=== PATIENT | female | born 1980 | race Caucasian/White ===

== ENCOUNTER 2016-08-18 16:51 | Emergency (ER) | payer BC, MEDICAID ==
--- NOTE | 2016-08-18 18:51 | UC ---
UC General HPI - HPI Summary HPI Summary: FOUR DAYS OF GREEN NASAL CONGESTION/DISCHARGE, ONE DAY OF DIARRHEA. NO FEVER. - History of Current Complaint Chief Complaint: UC Stated Complaint: DIARRHEA Time Seen by Provider: 08/18/16 18:33 Hx Obtained From: Patient, Family/Customer Loyalty Representative Hx From Patient Unobtainable Due To: Other - AUTISM CP Onset/Duration: Lasting Days, Still Present Onset Severity: Mild Current Severity: Mild Associated Signs & Symptoms: Positive: Diarrhea. Negative: Abdominal Pain, Confusion, Cough, Chest Pain, Decreased Responsiveness, Dizziness, Dysuria, Decreased Oral Intake, Edema, Fever, Headache, Nausea, Palpitations, Recent Medication Changes, Syncope, SOB, Vomiting, Wheezing - Allergy/Home Medications Allergies/Adverse Reactions: Allergies Allergy/AdvReac Type Severity Reaction Status Date / Time Influenza Vaccines Allergy Unknown Unknown Verified 08/18/16 17:46 Reaction Details Amoxicillin Allergy Hives Verified 08/18/16 17:46 Clavulanic Acid Allergy Unknown Verified 08/18/16 17:46 Reaction Details Potassium Allergy Unknown Verified 08/18/16 17:46 Reaction Details PMH/Surg Hx/FS Hx/Imm Hx Previously Healthy: Yes Cardiovascular History Of: Denies: Cardiac Disorders Respiratory History Of: Reports: Asthma Neurological History Of: Reports: Seizures - Surgical History Surgical History: None - Family History Known Family History: Positive: None, Unknown - FAM HX NOT NOTED WITH LEAD POURER - Social History Occupation: Disabled Lives: Assisted Living Alcohol Use: None Substance Use Type: None Smoking Status (MU): Never Smoked Tobacco Review of Systems Constitutional: Negative Skin: Negative Eyes: Negative ENT: Nasal Discharge Respiratory: Negative Cardiovascular: Negative Gastrointestinal: Diarrhea Genitourinary: Negative Motor: Negative Neurovascular: Negative Musculoskeletal: Negative Neurological: Negative Psychological: Negative All Other Systems Reviewed And Are Negative: Yes Physical Exam Triage Information Reviewed: Yes Completion Of Physical Exam Limited Due To: Other - SEVERE AUTISM, CP Appearance: Well-Appearing, No Pain Distress, Well-Nourished Vital Signs: Initial Vital Signs Temp 97.5 F 08/18/16 17:41 Vital Signs Reviewed: Yes Eye Exam: Normal ENT Exam: Normal ENT: Positive: Normal ENT inspection, Hearing grossly normal, Pharynx normal, TMs normal. Negative: TM bulging, TM dull, TM red Dental Exam: Normal Neck exam: Normal Neck: Positive: Supple, Nontender, No Lymphadenopathy Respiratory Exam: Normal Respiratory: Positive: Chest non-tender, Lungs clear, Normal breath sounds, No respiratory distress, No accessory muscle use Cardiovascular Exam: Normal Cardiovascular: Positive: RRR, No Murmur, Pulses Normal, Brisk Capillary Refill Abdominal Exam: Normal Abdomen Description: Positive: Nontender, No Organomegaly Bowel Sounds: Positive: Present. Negative: Hypoactive, Hyperactive Musculoskeletal Exam: Normal Musculoskeletal: Positive: Strength Intact, ROM Intact Neurological Exam: Normal Psychological Exam: Normal Psychological: Positive: Normal Response To Family Skin Exam: Normal Course/Dx - Differential Dx - Multi-Symptom Differential Diagnoses: Metabolic Abnormality Provider Diagnoses: UPPER RESPIRATORY INFECTION. ACUTE DIARRHEA. VIRAL SYNDROME Discharge - Discharge Plan Condition: Stable Disposition: HOME Patient Education Materials: Upper Respiratory Infection (ED), Acute Diarrhea ( ED), Viral Syndrome (ED) Referrals: Roxi Quinonez MD [Primary Care Provider] -
== END 2016-08-18 18:50 | disposition home or self-care (01) ==
LOC: UCEAST 16:51
DX: J06.9 Acute upper respiratory infection, unspecified (principal); R19.7 Diarrhea, unspecified; B34.9 Viral infection, unspecified; Z88.0 Allergy status to penicillin; Z88.7 Allergy status to serum and vaccine; Z88.8 Allergy status to other drugs, medicaments and biological substances
CPT/HCPCS: 99212; G0463

== ENCOUNTER 2017-02-21 13:56 | Emergency (ER) | payer BC, MEDICAID ==
--- NOTE | 2017-02-21 14:11 | UC ---
General HPI - HPI Summary HPI Summary: [place] from a [place], she was witnessed falling to her knees then face planting. she is active and caregiver states that she is acting normal. multiple small abraisions on her face, and one on the lower right leg. - History of Current Complaint Chief Complaint: UCGeneralIllness Stated Complaint: FELL Time Seen by Provider: 02/21/17 13:57 Hx Obtained From: Patient Onset/Duration: Sudden Onset, Lasting Hours Timing: Constant Onset Severity: Mild Current Severity: Mild - Allergy/Home Medications Allergies/Adverse Reactions: Allergies Allergy/AdvReac Type Severity Reaction Status Date / Time Influenza Vaccines Allergy Unknown Unknown Verified 02/21/17 14:04 Reaction Details Amoxicillin Allergy Hives Verified 02/21/17 14:04 Clavulanic Acid Allergy Unknown Verified 02/21/17 14:04 Reaction Details Potassium Allergy Unknown Verified 02/21/17 14:04 Reaction Details PMH/Surg Hx/FS Hx/Imm Hx Previously Healthy: Yes - Surgical History Surgical History: None - Family History Known Family History: Positive: None, Unknown - FAM HX NOT NOTED WITH GARBAGE TRUCK HELPER - Social History Alcohol Use: None Substance Use Type: None Smoking Status (MU): Never Smoked Tobacco Review of Systems Constitutional: Negative Skin: Other - multiple facial abrasions Eyes: Negative ENT: Negative Respiratory: Negative Cardiovascular: Negative Gastrointestinal: Negative Genitourinary: Negative Motor: Negative Neurovascular: Negative Musculoskeletal: Negative Neurological: Negative Psychological: Other - at baseline, non verbal All Other Systems Reviewed And Are Negative: Yes Physical Exam Triage Information Reviewed: Yes Appearance: Well-Appearing, No Pain Distress, Well-Nourished Vital Signs Reviewed: Yes Eye Exam: Normal ENT Exam: Normal Dental Exam: Normal Neck exam: Normal Respiratory Exam: Normal Cardiovascular Exam: Normal Cardiovascular: Positive: RRR, No Murmur, Pulses Normal - apical regular, 78 Abdominal Exam: Normal Abdomen Description: Positive: Nontender, No Organomegaly, Soft Bowel Sounds: Positive: Present Musculoskeletal Exam: Normal Musculoskeletal: Positive: Strength Intact, ROM Intact, No Edema Neurological Exam: Normal Neurological: Positive: Alert, Muscle Tone Normal Psychological Exam: Normal Skin: Positive: Other - abraision on forehead, nose and upper lip. small one noted on right lower leg Course/Dx - Course Course Of Treatment: hx obtained, exam performed ,meds reviewed, no scripts given, patient has [facility] standing order for bacitracin at the prison - Differential Dx - Multi-Symptom Provider Diagnoses: facial abrasions. fall from trip Discharge - Discharge Plan Condition: Stable Disposition: HOME Patient Education Materials: Abrasion (ED) Additional Instructions: 1. Follow the instructions on included paperwork.
== END 2017-02-21 14:27 | disposition home or self-care (01) ==
LOC: UCCORT 13:56
DX: S00.81XA Abrasion of other part of head, initial encounter (principal); S80.811A Abrasion, right lower leg, initial encounter; W01.0XXA Fall on same level from slipping, tripping and stumbling without subsequent striking against object, initial encounter; Y93.9 Activity, unspecified; Y92.199 Unspecified place in other specified residential institution as the place of occurrence of the external cause; Z88.1 Allergy status to other antibiotic agents; Z88.7 Allergy status to serum and vaccine
CPT/HCPCS: 99212; G0463

== ENCOUNTER 2018-10-13 11:31 | Emergency (ER) | payer BC, MEDICAID ==
--- NOTE | 2018-10-13 12:38 | UC ---
Skin Complaint HPI - HPI Summary HPI Summary: 38 year old female with development delay presents with caregiver reporting onset of dry scaly rash to the back of both of her lower legs 4 days ago. Caregiver does not report any itching. States they have been applying Kenalog cream with no improvement. Denies fever, chills, swelling of the lips, tongue, throat, difficulty breathing, wheezing, changes in soaps, detergents, lotions, diet, medications, or known contact with environmental irritants. - History of Current Complaint Chief Complaint: UCSkin Time Seen by Provider: 10/13/18 12:23 Stated Complaint: RASH Hx Obtained From: Patient Hx Last Menstrual Period: 3 wks ago Pain Intensity: 0 - Allergy/Home Medications Allergies/Adverse Reactions: Allergies Allergy/AdvReac Type Severity Reaction Status Date / Time amoxicillin [From Augmentin] Allergy Unknown Verified 10/13/18 12:36 Reaction Details clavulanic acid Allergy Unknown Verified 10/13/18 12:36 [From Augmentin] Reaction Details Influenza Virus Vaccines Allergy Unknown Verified 10/13/18 12:36 Reaction Details potassium Allergy Unknown Verified 10/13/18 12:36 Reaction Details Home Medications: Home Medications Loratadine 10 mg PO DAILY 10/13/18 [History Confirmed 10/13/18] Triamcinolone 0.1% CREAM (NF) [Kenalog 0.1% Cream (NF)] 1 each TOPICAL BID 10/13 [History Confirmed 10/13/18] PMH/Surg Hx/FS Hx/Imm Hx Previously Healthy: Yes - Surgical History Surgical History: None - Family History Known Family History: Positive: Unknown - FAM HX NOT NOTED WITH BISCUIT PACKER - Social History Occupation: Disabled Lives: [place] Alcohol Use: None Substance Use Type: None Smoking Status (MU): Never Smoked Tobacco Review of Systems All Other Systems Reviewed And Are Negative: Yes Constitutional: Negative: Fever, Chills Skin: Positive: Rash ENT: Positive: Negative Respiratory: Negative: Shortness Of Breath Cardiovascular: Positive: Negative Gastrointestinal: Positive: Negative Genitourinary: Positive: Negative Musculoskeletal: Positive: Negative Neurological: Positive: Negative Is Patient Immunocompromised?: No Physical Exam - Summary Physical Exam Summary: GENERAL APPEARANCE: Well developed, well nourished, alert and cooperative, and appears to be in no acute distress. EYES: Conjunctiva clear. No drainage. Vision is grossly intact. EARS: External auditory canals and tympanic membranes clear, hearing grossly intact. NOSE: No nasal discharge. THROAT: Pharynx normal No tonsilar inflammation, swelling, exudate, or lesions. Uvula midline. Oral cavity normal. Teeth and gingiva in good general condition. NECK: Neck supple, non-tender without lymphadenopathy. CARDIAC: Normal S1 and S2. No S3, S4 or murmurs. Rhythm is regular. There is no peripheral edema, cyanosis or pallor. Extremities are warm and well perfused. Capillary refill is less than 2 seconds. Peripheral pulses intact. LUNGS: Clear to auscultation without rales, rhonchi, wheezing or diminished breath sounds. ABDOMEN: Positive bowel sounds. Soft, nondistended, nontender. No guarding or rebound. No masses or hepatosplenomegally. MUSKULOSKELETAL: ROM intact to all extremities. No joint erythema or tenderness. Normal muscular development. Normal gait. SKIN: Dry, scaly erythematous rash with dry flaky skin to the posterior lower extremities with the left worse than the right. Triage Information Reviewed: Yes Vital Signs: Initial Vital Signs Temp 97.4 F 10/13/18 12:18 Pulse 80 10/13/18 12:18 Resp 18 10/13/18 12:18 Pulse Ox 99 10/13/18 12:18 Vital Signs Reviewed: Yes Course/Dx - Course Course Of Treatment: 38 year old female with development delay presents with caregiver reporting onset of dry scaly rash to the back of both of her lower legs 4 days ago. Caregiver does not report any itching. States they have been applying Kenalog cream with no improvement. Denies fever, chills, swelling of the lips, tongue, throat, difficulty breathing, wheezing, changes in soaps, detergents, lotions, diet, medications, or known contact with environmental irritants. Afebrile. VSS. Exam reveals an adult female in no acute distress with dry, scaly erythematous rash with dry flaky skin to the posterior lower extremities with the left worse than the right. Exam otherwise unremarkable. Will try using a more potent topical steroid and have caregivers use a moisturizing lotion to see if this improves symptoms. A prescription for clobetasol ointment was provided. She is to follow up with PCP in 7 days if no improvement. Anticipatory guidance and warning symptoms reviewed with caregiver. Verbalizes understanding and agrees with POC. - Differential Diagnoses - Skin Complaint Differential Diagnoses: Allergic Reaction, Cellulitis, Contact Dermatitis, Eczema, Local Allergic Reaction, Tinea - Diagnoses Provider Diagnosis: Dermatitis Discharge - Sign-Out/Discharge Documenting (check all that apply): Patient Departure All imaging exams completed and their final reports reviewed: No Studies - Discharge Plan Condition: Stable Disposition: HOME Prescriptions: Clobetasol 0.05% OINT* 1 applic TOPICAL BID #1 tube Patient Education Materials: Dermatitis (ED) Referrals: Roxi Quinonez MD [Primary Care Provider] - 7 Days (If no improvement.) Additional Instructions: The rash appears to be a dermatitis of uncertain cause. Stop using the Kenalog cream and start clobetasol ointment. Apply a thin layer to the affected area(s) twice a day. Do not use for more than 2 weeks. After applying the clobetasol ointment, use a hydrating lotion such as Lubriderm or Aquafor. Follow up with the primary care provider in 5-7 days if no improvement in symptoms. - Billing Disposition and Condition Condition: STABLE Disposition: Home - Attestation Statements Provider Attestation: Per institutional requirements, I have reviewed the chart, however, I was not consulted specifically or made aware of this patient by the midlevel provider. I did not personally evaluate, interact with , or disposition this patient.
== END 2018-10-13 12:43 | disposition home or self-care (01) ==
LOC: UCCORT 11:31
DX: L30.9 Dermatitis, unspecified (principal); Z88.0 Allergy status to penicillin; Z88.7 Allergy status to serum and vaccine; Z91.09 Other allergy status, other than to drugs and biological substances
CPT/HCPCS: 99212; G0463

== ENCOUNTER 2019-07-22 17:53 | Emergency (ER) | payer BC, MEDICAID ==
--- NOTE | 2019-07-22 19:21 | ED ---
Complex/Multi-Sys Presentation - HPI Summary HPI Summary: Patient is a 39 y/o F w/ cerebral palsy presenting to [facility] for evaluation of generalized pain. Patient is a level 5 caveat secondary to nonverbal status. Mother provides history. Mother states that around a month ago, it was noted at her program that the patient tended to lean towards her left side. PCP had evaluated the patient, bloodwork was done and was unremarkable. Mother states that the patient has been dealing with sinus issues and was placed on Doxycycline over . This past weekend, she has been crying and grimacing in pain. Mother claims that the patient has a high pain tolerance; crying is characterized as an abnormal behavior. They have not been able to definitely localize the patient's pain, but it is believed that the patient's pain is at her abdomen. Decreased appetite and PO fluid intake is noted, mother reports that the patient has a very large appetite at baseline. No vomiting or diarrhea noted. Tylenol has been administered with some relief in Sx. Mother states that the patient has been fluctuating between crying/grimacing in pain and being at her baseline. She also notes that the patient has been pacing more frequently than normal and with increased fatigue. Mother is concerned for possible kidney stone due to FMHx of such. PSHx of myringotomy and wisdom teeth removal noted. Home medications and allergies are reviewed. - History Of Current Complaint Chief Complaint: EDAbdPain Time Seen by Provider: 07/22/19 18:59 Hx Obtained From: Family/Data Warehouse Analyst Hx From Patient Unobtainable Due To: Other - atient is a level 5 caveat secondary to nonverbal status, cerebral palsy Onset/Duration: Still Present Timing: Constant Location: Pain At: - abdomen Alleviating Factor(s): Tylenol Associated Signs And Symptoms: Positive: Abdominal Pain, Other - positive - decreased PO intake, fatigue. Negative: Vomiting, Diarrhea - Allergies/Home Medications Allergies/Adverse Reactions: Allergies Allergy/AdvReac Type Severity Reaction Status Date / Time amoxicillin [From Augmentin] Allergy Unknown Verified 07/22/19 18:04 Reaction Details clavulanic acid Allergy Unknown Verified 07/22/19 18:04 [From Augmentin] Reaction Details Influenza Virus Vaccines Allergy Unknown Verified 07/22/19 18:04 Reaction Details potassium Allergy Unknown Verified 07/22/19 18:04 Reaction Details Home Medications: Home Medications Al Hydrox/Mg Hydrox/Simet LIQ* [Maalox Plus*] 30 ml PO Q4H PRN 07/23/19 [ History Confirmed 07/23/19] Bacitracin Zinc 1 each TP Q12HR PRN 07/23/19 [History Confirmed 07/23/19] Carbamide Peroxide 6.5% OTIC* [DEBROX 6.5% Otic*] 4 drop .SEE ORDER BID [History Confirmed 07/23/19] Emollient Combination No.40 [Cetaphil] 226 gm TP BID 07/23/19 [History Confirmed 07/23/19] Eucalyptus Oil/Menthol/Camphor [Vicks Vaporub Ointment] 50 gm TP BID PRN [History Confirmed 07/23/19] Glycerin/Min Oil/Wh.petrolatum [Lubriderm Sensitive Skin Lot] 473 ml TP QPM [History Confirmed 07/23/19] Petrolatum,White [Aquaphor] 396 gm TP DAILY PRN 07/23/19 [History Confirmed ] Triazolam 0.25 mg PO ONCE PRN 07/23/19 [History Confirmed 07/23/19] diphenhydrAMINE HCL [Diphenhydramine HCl] 25 mg PO QPM 07/23/19 [History Confirmed 07/23/19] PMH/Surg Hx/FS Hx/Imm Hx Respiratory History: Reports: Hx Asthma Neurological History: Reports: Hx Seizures, Other Neuro Impairments/Disorders - CEREBRAL PALSY Psychiatric History: Reports: Hx Autism Infectious Disease History: No Infectious Disease History: Denies: Hx Clostridium Difficile, Hx Hepatitis, Hx Human Immunodeficiency Virus (HIV), Hx Shingles, Hx Tuberculosis, Traveled Outside the [place] in Last 30 Days - Family History Known Family History: Positive: Renal Disease - kidney stones - Social History Alcohol Use: None Hx Substance Use: No Substance Use Type: Reports: None Hx Tobacco Use: No Smoking Status (MU): Never Smoked Tobacco Review of Systems - ROS Summary Review of Systems Summary: Patient is a level 5 caveat secondary to nonverbal status, cerebral palsy Positive: Fatigue. Negative: Fever - on vitals, temp is 97.8 F Gastrointestinal: Other - positive - decreased PO intake Positive: Abdominal Pain. Negative: Vomiting, Diarrhea Psychological: Other - positive - crying All Other Systems Reviewed And Are Negative: No - Comments Additional Review of Systems Comments: Patient is a level 5 caveat secondary to nonverbal status, cerebral palsy Physical Exam - Summary Physical Exam Summary: Appearance: Well-appearing, Well-nourished, no apparent distress Skin: Warm, dry, no obvious rash Eyes: sclera anicteric, no conjunctival pallor ENT: patient is unable to cooperate with ENT exam Neck: Supple, nontender Respiratory: Clear to auscultation, no signs of respiratory distress Cardiovascular: Normal S1, S2. No murmurs. Normal distal pulses in tibial and radial bilaterally. Abdomen: patient is unable to cooperate with abdominal exam Musculoskeletal: Normal, Strength/ROM Intact Neurological: Nonverbal, level 5 caveat Psychiatric: Nonverbal, level 5 caveat Triage Information Reviewed: Yes Vital Signs On Initial Exam: Initial Vitals Temp Pulse Resp BP Pulse Ox 97.8 F 93 18 116/85 98 07/22/19 17:59 07/22/19 17:59 07/22/19 17:59 07/22/19 17:59 07/22/19 17:59 Vital Signs Reviewed: Yes Completion Of Physical Exam Limited Due To: Level 5, Other - non-verbal, cerebral palsy Procedures - Sedation Patient Received Moderate/Deep Sedation with Procedure: No Diagnostics - Vital Signs Vital Signs Temp Pulse Resp BP Pulse Ox 07/22/19 17:59 97.8 F 93 18 116/85 98 - Laboratory Result Diagrams: 07/22/19 21:25 07/22/19 21:25 Lab Statement: Any lab studies that have been ordered have been reviewed, and results considered in the medical decision making process. - Radiology CXR Radiology Interpretation Completed By: ED Physician Summary of Radiographic Findings: CXR showed no acute process pending official report. - CT CT ABD/PEL CT Interpretation Completed By: Radiologist Summary of CT Findings: IMPRESSION: 1. Involuting possibly hemorrhagic left ovarian corpus luteal cyst. 2. Moderate fecal load throughout the colon. Constipation is considered. THIS REPORT WAS REVIEWED BY ED PHYSICIAN. Re-Evaluation - Re-Evaluation First Eval Re-Evaluation Time: 01:10 Comment: Results of workup were discussed with mother. Patient to be discharged to home. Treating patient with Tylenol and Motrin was advised. If Sx do not improve, patient is recommended to follow up with GI. Complex Multi-Symp Course/Dx Course Of Treatment: Patient is a 39 y/o F w/ cerebral palsy presenting to [facility] for evaluation of generalized pain. Patient is a level 5 caveat secondary to nonverbal status. Mother provides history. Mother states that around a month ago, it was noted at her program that the patient tended to lean towards her left side. PCP had evaluated the patient, bloodwork was done and was unremarkable. Mother states that the patient has been dealing with sinus issues and was placed on Doxycycline over . This past weekend, she has been crying and grimacing in pain. Mother claims that the patient has a high pain tolerance; crying is characterized as an abnormal behavior. They have not been able to definitely localize the patient's pain, but it is believed that the patient's pain is at her abdomen. Decreased appetite and PO fluid intake is noted, mother reports that the patient has a very large appetite at baseline. No vomiting or diarrhea noted. Tylenol has been administered with some relief in Sx. Mother states that the patient has been fluctuating between crying/ grimacing in pain and being at her baseline. She also notes that the patient has been pacing more frequently than normal and with increased fatigue. Mother is concerned for possible kidney stone due to FMHx of such. PSHx of myringotomy and wisdom teeth removal noted. Unable to assess abdomen and ENT due to uncooperativity of patient. She is in no apparent distress. CXR showed no acute process. Bloodwork was obtained and within normal limits with exception of Hgb 11.7, MCH 32, INR 1.14, carbon dioxide 19, BUN/creatinine ratio 24.2, glucose 105. UA showed 1+ protein, trace ketones, trace leukocyte esterase, trace WBC, trace RBC, squamous epith cells present, ascorbic acid present. During ED course, patient received Ativan 1 mg x2 and Haldol 5 mg IM and [address] ABD/PEL IMPRESSION: 1. Involuting possibly hemorrhagic left ovarian corpus luteal cyst. 2. Moderate fecal load throughout the colon. Constipation is considered. Results of workup were discussed with mother. Patient to be discharged to home. Treating patient with Tylenol and Motrin was advised. If Sx do not improve, patient is recommended to follow up with GI. - Diagnoses Provider Diagnoses: Left ovarian cyst, Constipation Discharge ED - Sign-Out/Discharge Documenting (check all that apply): Patient Departure - discharge - Discharge Plan Condition: Stable Disposition: HOME Patient Education Materials: Ovarian Cyst (ED), Constipation (ED) Referrals: Marques Colon DO [Doctor of Osteopathy] - Roxi Quinonez MD [Primary Care Provider] - Additional Instructions: We did not find anything worrisome on Dilma's tests tonight. The radiologist does think she has a left sided ovarian cyst that could be causing her some discomfort, but that should heal on its own. For now I would recommend a regular dose of tylenol or motrin if she seems uncomfortable. If she does not seem to improve over the next few days to a week, she should see a tractor drill operator. - Billing Disposition and Condition Condition: STABLE Disposition: Home - Attestation Statements Document Initiated by Ratna: Yes Documenting Scribe: MARKUS NAVARRETE Provider For Whom Ratna is Documenting (Include Credential): ISACC MELGAR MD Scribe Attestation: IMARKUS, scribed for ISACC MELGAR MD on 07/27/19 at 0632. Scribe Documentation Reviewed: Yes Provider Attestation: The documentation as recorded by the MARKUS alva accurately reflects the service I personally performed and the decisions made by me, ISACC MELGAR MD Status of Scribe Document: Viewed
[2019-07-22] MEDS ORDERED: Haloperidol INJ IV/IM* 5 MG/ML AMP IM ONE (19:34)
[2019-07-22] MEDS ORDERED: LORazepam INJ* 2 MG/ML 1 ML VIAL IM ONE (19:34)
[2019-07-22] MEDS ORDERED: Lorazepam PYXIS KEY ONE ×2 (20:00→22:16)
[2019-07-22 21:32] LABS: Urine Appearance Cloudy; Urine Bilirubin Negative (Negative); Urine Blood Negative (Negative); Urine Color Yellow; Urine Glucose Negative (Negative); Urine Ketones Trace (Negative); Urine Nitrite Negative (Negative); Urine Protein 1+(30 mg/dL) (Negative); Urine Specific Gravity 1.031 (1.010-1.030); Urine Urobilinogen Negative (Negative)
[2019-07-22 21:33] LABS: ABS Basophils 0.1 10^3/ul (0-0.2); ABS Eosinophils 0.2 10^3/ul (0-0.6); ABS Lymphocytes 3.4 10^3/ul (1.0-4.8); ABS Monocytes 0.6 10^3/ul (0-0.8); Eosinophil % 3.7 %; Hematocrit 35 % (35-47); Hemoglobin 11.7 g/dL (12.0-16.0); Lymphocyte % 53.8 %; Mean Corpuscular HGB Conc 34 g/dL (31-36); Mean Corpuscular Hemoglobin 32 pg (27-31); Mean Corpuscular Volume 94 fL (80-97); Mean Platelet Volume 9.3 fL (7.4-10.4); Nucleated Red Blood Cells % 0.2; Platelet Count 195 10^3/uL (150-450); Red Cell Distribution Width 14 % (10-15); White Blood Count 6.3 10^3/uL (3.5-10.8)
[2019-07-22 21:39] LABS: Urine Bacteria Absent (Absent); Urine Red Blood Cell Trace(0-2/hpf) (Absent); Urine Squamous Epithelial Cell Present (Absent); Urine White Blood Cell Trace(0-5/hpf) (Absent)
[2019-07-22 21:44] LABS: Albumin 4.4 g/dL (3.2-5.2); Calcium 9.5 mg/dL (8.6-10.3); Potassium 3.9 mmol/L (3.5-5.0); Total Bilirubin 0.3 mg/dL (0.2-1.0)
[2019-07-22 21:50] LABS: Albumin/Globulin Ratio 1.4 (1-3); BUN/Creatinine Ratio 24.2 (8-20); EGFR African American 121.9 (>60); EGFR Non-African American 100.8 (>60); Globulin 3.1 g/dL (2-4); Total Protein 7.5 g/dL (6.4-8.9)
[2019-07-22] MEDS ORDERED: Iohexol 300* (CONTRAST) 10 ML SDV IV ONE (21:55)
[2019-07-22 21:56] LABS: Activated Partial Thrombo Time 35.7 seconds (26.0-38.0); INR 1.14 (0.82-1.09)
[2019-07-22] MEDS ORDERED: LORazepam INJ* 2 MG/ML 1 ML VIAL IV ONE (22:08)
[2019-07-22] MEDS ORDERED: Haloperidol INJ IV/IM* 5 MG/ML AMP IV ONE (22:08)
[2019-07-23 07:03] VITALS: BP 0/0
== END 2019-07-23 07:01 | disposition home or self-care (01) ==
LOC: ED 17:53
DX: N83.202 Unspecified ovarian cyst, left side (principal); K59.00 Constipation, unspecified; J45.909 Unspecified asthma, uncomplicated; G80.9 Cerebral palsy, unspecified; F84.0 Autistic disorder; Z88.1 Allergy status to other antibiotic agents; Z88.7 Allergy status to serum and vaccine; Z88.8 Allergy status to other drugs, medicaments and biological substances
CPT/HCPCS: 36415; 71045; 74177; 80053; 81003; 81015; 83605; 85025; 85610; 85730; 87077; 87086; 96372; 96374; 96375; 99284; J1630; J2060; Q9967

== ENCOUNTER 2019-07-28 12:04 | Inpatient (IN) | payer BC, MEDICAID ==
--- OUTSIDE RECORDS SUMMARY | 2019-07-28 12:12 | XMS REPORT | Summary of Care ---
:1980 Author Organization [facility] Address [address] [place] [address] Care Team Providers Name Role Phone Roxi Quinonez Primary Care Provider Reason for Visit Reason Comments Congestion Presents with parents, lives in jail; nurse advised of nasal congestion x2 weeks. Denies fever. OTC mucinex and benadryl x1 week, not really helping. Encounter Details Date Type Department Care Team Description 07[facility]13/2019 [facility] Acute non-recurrent sinusitis, unspecified location (Primary Dx); Practice Rylie Pantoja MD Cough; [address] Autism; [place] [address] Intellectual disability; [phone] Cerebral palsy, unspecified type ([facility]) Allergies Active Allergy Reactions Severity Noted Date Comments Amoxicillin 08/28/2007 Augmentin 08/28/2007 Influenza Vaccines Unknown Reaction 05/21/2015 Potassium Other 08/28/2007 documented as of this encounter (statuses as of 07/13/2019) Medications Medication Sig Dispensed Refills Start End Status Date Date acetaminophen Take 2 Tabs by 120 Tab 0 11/30/19 Active (TYLENOL) 325 MG mouth EVERY 13 Oral Tab FOUR HOURS NEEDED for Pain (for pain or fever>101 do not give with naproxen). aluminum & Take 30 mL by 840 mL 0 11/30/19 Active magnesium mouth EVERY 13 hydroxide-simethico FOUR HOURS ne (MYLANTA I) NEEDED (for 200-200-20 MG/5ML minor upset Oral Suspension stomach ). Camphor-Eucalyptus- by Apply 0 11/30/19 Active Menthol (VICKS externally 13 VAPORUB) route 4.7-1.2-2.6 % Apply NEEDED (for externally Ointment chest congestion or cold symptoms). bacitracin 500 Apply to small 0 11/30/19 Active UNIT/GM Apply cuts and 13 externally Ointment scrapes as needed naproxen sodium TAKE ONE 60 Tab 4 04/03/20 Active (ANAPROX DS) 550 MG TABLET BY 15 Oral Tab MOUTH 2 TIMES A DAY NEEDED (FOR MENSTRAL CRAMP)DO NOT GIVE WITH TYLENOL(DAY CARD FOR 1 WEEK) Emollient (CETAPHIL APPLY TWICE 453 g 5 06/22/20 Active MOISTURIZING) Apply DAILY TO FACE 15 externally Cream (MOISTURIZER) APPLY EXTERNALLY diphenhydrAMINE Take 25 mg by 30 Tab 5 07/22/20 Active (BENADRYL) 25 MG mouth EVERY 15 Oral Tab BEDTIME NEEDED (nightime congestion). Diphenhydramine-Zin APPLY TO BUG 28 g 3 10/22/19 Active c Acetate 2-0.1 % BITES 16 Apply externally NEEDED NO MORE Cream THAN FOUR TIMES A DAY Salicylic Acid-Urea by Apply 0 Active 5-10 % Apply externally externally Ointment route DAILY NEEDED. pseudoephedrine Take 1 Tab by 30 Tab 5 12/18/19 Active (SUDAFED) 30 MG mouth EVERY 16 Oral Tab EIGHT HOURS NEEDED for Congestion. naproxen sodium TAKE ONE 60 Tab 5 03/29/20 Active (ANAPROX DS) 550 MG TABLET BY 16 Oral Tab MOUTH 2 TIMES A DAY NEEDED (FOR MENSTRAL CRAMP)DO NOT GIVE WITH TYLENOL(DAY CARD FOR 1 WEEK) GLYCERIN 2 G Rectal INSERT 1 50 Suppository 0 07/26/20 Active Suppos RECTALLY EVERY 16 THIRD DAY AT 7:30PM IF NO BOWEL MOVEMENT IF NO RESULTS BY 9AM NEXT MORNING NOTIFY NURSE loperamide TAKE ONE 20 Cap 5 08/13/19 Active (IMODIUM) 2 MG Oral CAPSULE BY 17 Cap MOUTH FOUR TIMES A DAY NEEDED FOR DIARRHEA DEXTROMETHORPHAN-GG Take 1 Cap by 180 Cap 5 08/18/19 Active (ROBITUSSIN mouth EVERY 17 COUGH+CHEST DIANNE FOUR HOURS DM) 10-200 MG Oral NEEDED (cough Cap without fever). triamcinolone APPLY TO 80 g 0 01/31/20 Active (KENALOG,ARISTOCORT AFFECTED 17 ) 0.1 % Apply ECZEMA AREAS 2 externally Cream TIMES A DAY NEEDED polyethylene glycol Take 17 g by 527 g 0 08/20/19 Active (MIRALAX) Oral mouth DAILY 19 PowderIndications: NEEDED (prn Constipation, for unspecified consipation). constipation type calcium TAKE ONE 60 Tab 11 08/22/19 Active carbonate-vitamin D TABLET BY 19 (CALTRATE-D) MOUTH 2 TIMES 600-400 MG-UNIT A DAY (MAY Oral CRUSH IF TabIndications: NEEDED) Vitamin D SUPPLEMENT deficiency docusate sodium TAKE 1 CAPSULE 30 Cap 11 08/22/19 Active (COLACE) 100 MG BY MOUTH ONCE 19 Oral A DAY ( STOOL CapIndications: SOFTNER) Bowel trouble CLEAR-ATADINE 10 MG TAKE 1 TABLET 30 Tab 11 08/22/19 Active Oral BY MOUTH EVERY 19 TabIndications: DAY Seasonal allergic rhinitis due to other allergic trigger Multiple Vitamin Take 1 tablet 30 Tab 9 10/17/19 Active (ONE DAILY) Oral by mouth once 19 TabIndications: daily Preventative health care naproxen sodium TAKE ONE 60 Tab 0 12/26/19 Active (ANAPROX DS) 550 MG TABLET BY 19 Oral Tab MOUTH 2 TIMES A DAY NEEDED (FOR MENSTRAL CRAMP)DO NOT GIVE WITH TYLENOL(DAY CARD FOR 1 WEEK) Loratadine 10 MG Take by 0 Active Oral Cap mouth. Salicylic Acid-Urea by Topical 0 Active 5-10 % Apply route. externally Ointment carbamide peroxide Place 4 Drops 15 mL 3 06/10/20 Active (EAR WAX REMOVAL into left ear 19 DROPS) 6.5 % Otic TWICE DAILY. SolutionIndications : Cerumen debris on tympanic membrane of left ear doxycycline Take 100 mg by 14 Tab 0 07/13/20 Active (VIBRAMYCIN) 100 MG mouth TWICE 19 019 Oral DAILY for 7 TabIndications: days. Take Acute non-recurrent with food but sinusitis, not milk unspecified location benzonatate Take 1 Cap by 30 Cap 0 07/13/20 Active (TESSALON PERLES) mouth THREE 19 100 MG Oral TIMES DAILY CapIndications: NEEDED for Cough cough. benzonatate TAKE ONE 30 Cap 0 10/20/19 Discontinued (TESSALON PERLES) CAPSULE BY 17 019 (Reorder) 100 MG Oral Cap MOUTH EVERY 8 HOURS NEEDED FOR COUGH (DO NOT CRUSH OR CHEW) documented as of this encounter (statuses as of 07/13/2019) Active Problems Problem Noted Date Allergic rhinitis 01/01/2016 Overview: Restore zyrtec 01/13 after failed trial to stop medication Seizure disorder 11/29/2011 Overview: 11/29/11 last 2-3 minutes Intellectual disability 08/28/2007 Autism 08/28/2007 Cerebral palsy 08/28/2007 documented as of this encounter (statuses as of 07/13/2019) Immunizations Name Administration Dates Next Due TDAP Vaccine 05/21/2015 documented as of this encounter Social History Tobacco Use Types Packs/Day Years Used Date Never Smoker Smokeless Tobacco: Never Used Alcohol Use Drinks/Week oz/Week Comments No 0 Standard drinks or equivalent 0.0 Sex Assigned at Date Recorded Not on file Job Start Date Occupation Industry Not on file Not on file Not on file Travel History Travel Start Travel End No recent travel history available. documented as of this encounter Last Filed Vital Signs Vital Sign Reading Time Taken Comments Blood Pressure 90/58 07/13/2019 1:26 PM EST Pulse 100 07/13/2019 1:26 PM EST Temperature 37.2 07/13/2019 1:26 PM EST C (98.9 F) Respiratory Rate 18 07/13/2019 1:26 PM EST Oxygen Saturation - - Inhaled Oxygen Concentration - - Weight 52.2 kg (115 lb) 07/13/2019 1:26 PM EST Height 146.1 cm (4' 9.5") 07/13/2019 1:26 PM EST Body Mass Index 24.45 07/13/2019 1:26 PM EST documented in this encounter Patient Instructions Patient InstructionsRylie Bautista MD - 07/13/2019 1:20 PM ESTYou present today with upper respiratory infection symptoms. Rest, drink plenty of fluids, and return if worsening over the next week, or not resolved in 2 weeks. I [facility] Be sure they deliver it this weekend. Take with food Avoid sun: Causes sunburn You have been prescribed an antibiotic for treatment of your condition. It is important to rememberthat antibiotics treat bacterial infections, not viral infections. In order for them to be effective - you must take ALL of the medication and take it exactly as prescribed. FINISH THE MEDICATION - even if you are feeling better. Antibiotics can cause stomach upset and diarrhea, and increase the risk of C. Difficile Colitis. You can help decrease these symptoms/risks by taking a probiotic while using the medication (Brittany Culturellantoinette for example), or give her yogurt. Take your antibiotic with food unless otherwise recommended by the pharmacist. documented in this encounter Progress Notes Rylie Bautista MD - 07/13/2019 1:20 PM EST PATIENT: Dilma Ayala : 1980 DATE OF SERVICE: 07/13/2019 CHIEF COMPLAINT: Chief Complaint Patient presents with Congestion Presents with parents, lives in jail; nurse advised of nasal congestion x2 weeks. Denies fever. OTC mucinex and benadryl x1 week, not really helping. Subjective HISTORY OF PRESENT ILLNESS: Dilma Ayala is a 39-y.o. female. Nursing Notes: Dolly Alvarez LPN 07/13/2019 1:35 PM Sign at exiting of workspace Chief Complaint Patient presents with Congestion Presents with parents, lives in jail; nurse advised of nasal congestion x2 weeks. Denies fever. OTC mucinex and benadryl x1 week, not really helping. Dolly Alvarez LPN [facility] resident URI The history is provided by the parent. This is a new problem. The current episode started 1 to 4 weeks ago. The problem has been gradually worsening. There has been no fever. Associated symptoms include congestion, headaches, rhinorrhea and cough. Pertinent negatives include no diarrhea, no nausea, novomiting and no rash. Associated symptoms comments: Clear to thick nasal drainage, sometimes green. She has tried other meds (mucinex, benadryl) for the symptoms. Past Medical History: Diagnosis Date Autism 08/28/2007 Cerebral palsy (HCC) 08/28/2007 Mental retardation 08/28/2007 History reviewed. No pertinent family history. Current Outpatient Medications Medication Sig acetaminophen (TYLENOL) 325 MG Oral Tab Take 2 Tabs by mouth EVERY FOUR HOURS NEEDED for Pain (for pain or fever>101 do not give with naproxen). aluminum & magnesium hydroxide-simethicone (MYLANTA I) 200-200-20 MG/ 5ML Oral Suspension Take 30 mL by mouth EVERY FOUR HOURS NEEDED (for minor upset stomach ). bacitracin 500 UNIT/GM Apply externally Ointment Apply to small cuts and scrapes as needed benzonatate (TESSALON PERLES) 100 MG Oral Cap Take 1 Cap by mouth THREE TIMES DAILY NEEDEDfor cough. calcium carbonate-vitamin D (CALTRATE-D) 600-400 MG-UNIT Oral Tab TAKE ONE TABLET BY MOUTH 2 TIMES A DAY (MAY CRUSH IF NEEDED) SUPPLEMENT Xfdlhyc-Ovhlbnmszm-Catfzra (VICKS VAPORUB) 4.7-1.2-2.6 % Apply externally Ointment by Apply externally route NEEDED (for chest congestion or cold symptoms). carbamide peroxide (EAR WAX REMOVAL DROPS) 6.5 % Otic Solution Place 4 Drops into left ear TWICE DAILY. CLEAR-ATADINE 10 MG Oral Tab TAKE 1 TABLET BY MOUTH EVERY DAY DEXTROMETHORPHAN-GG (ROBITUSSIN COUGH+CHEST DIANNE DM) 10-200 MG Oral Cap Take 1 Cap by mouth EVERY FOUR HOURS NEEDED (cough without fever). diphenhydrAMINE (BENADRYL) 25 MG Oral Tab Take 25 mg by mouth EVERY BEDTIME NEEDED (nightime congestion). Diphenhydramine-Zinc Acetate 2-0.1 % Apply externally Cream APPLY TO BUG BITES NEEDED NO MORE THAN FOUR TIMES A DAY docusate sodium (COLACE) 100 MG Oral Cap TAKE 1 CAPSULE BY MOUTH ONCE A DAY ( STOOL SOFTNER) doxycycline (VIBRAMYCIN) 100 MG Oral Tab Take 100 mg by mouth TWICE DAILY for 7 days. Take with food but not milk Emollient (CETAPHIL MOISTURIZING) Apply externally Cream APPLY TWICE DAILY TO FACE (MOISTURIZER) APPLY EXTERNALLY GLYCERIN 2 G Rectal Suppos INSERT 1 RECTALLY EVERY THIRD DAY AT 7:30PM IF NO BOWEL MOVEMENT IF NO RESULTS BY 9AM NEXT MORNING NOTIFY NURSE loperamide (IMODIUM) 2 MG Oral Cap TAKE ONE CAPSULE BY MOUTH FOUR TIMES A DAY NEEDED FOR DIARRHEA Loratadine 10 MG Oral Cap Take by mouth. Multiple Vitamin (ONE DAILY) Oral Tab Take 1 tablet by mouth once daily naproxen sodium (ANAPROX DS) 550 MG Oral Tab TAKE ONE TABLET BY MOUTH 2 TIMES A DAY NEEDED(FOR MENSTRAL CRAMP)DO NOT GIVE WITH TYLENOL(DAY CARD FOR 1 WEEK) naproxen sodium (ANAPROX DS) 550 MG Oral Tab TAKE ONE TABLET BY MOUTH 2 TIMES A DAY NEEDED(FOR MENSTRAL CRAMP)DO NOT GIVE WITH TYLENOL(DAY CARD FOR 1 WEEK) naproxen sodium (ANAPROX DS) 550 MG Oral Tab TAKE ONE TABLET BY MOUTH 2 TIMES A DAY NEEDED(FOR MENSTRAL CRAMP)DO NOT GIVE WITH TYLENOL(DAY CARD FOR 1 WEEK) polyethylene glycol (MIRALAX) Oral Powder Take 17 g by mouth DAILY NEEDED (prn for consipation). pseudoephedrine (SUDAFED) 30 MG Oral Tab Take 1 Tab by mouth EVERY EIGHT HOURS NEEDED for Congestion. Salicylic Acid-Urea 5-10 % Apply externally Ointment by Apply externally route DAILY NEEDED. Salicylic Acid-Urea 5-10 % Apply externally Ointment by Topical route. triamcinolone (KENALOG,ARISTOCORT) 0.1 % Apply externally Cream APPLY TO AFFECTED ECZEMA AREAS 2 TIMES A DAY NEEDED No current facility-administered medications for this visit. Allergies Allergen Reactions Amoxicillin Augmentin Influenza Vaccines Unknown Reaction Potassium Other Social History Socioeconomic History Marital status: Single Spouse name: Not on file Number of children: Not on file Years of education: Not on file Highest education level: Not on file Occupational History Not on file Social Needs Financial resource strain: Not on file Food insecurity Worry: Not on file Inability: Not on file Transportation needs Medical: Not on file Non-medical: Not on file Tobacco Use Smoking status: Never Smoker Smokeless tobacco: Never Used Substance and Sexual Activity Alcohol use: No Alcohol/week: 0.0 standard drinks Drug use: No Sexual activity: Not on file Lifestyle Physical activity Days per week: Not on file Minutes per session: Not on file Stress: Not on file Relationships Social connections Talks on phone: Not on file Gets together: Not on file Attends scientologist service: Not on file Active member of club or organization: Not on file Attends meetings of clubs or organizations: Not on file Relationship status: Not on file Intimate partner violence Fear of current or ex partner: Not on file Emotionally abused: Not on file Physically abused: Not on file Forced sexual activity: Not on file Other Topics Concern Not on file Social History Narrative Not on file REVIEW OF SYSTEMS: Review of Systems Constitutional: Negative for chills, fever and weight loss. HENT: Positive for congestion and rhinorrhea. Eyes: Negative for discharge. Respiratory: Positive for cough. Negative for hemoptysis, sputum production and shortness of breath. Cardiovascular: Negative for leg swelling. Gastrointestinal: Negative for diarrhea, nausea and vomiting. Skin: Negative for rash. Neurological: Positive for headaches. She has severe autism, non-verbal. Objective PHYSICAL EXAM: VITALS: BP 90/58 (BP Location: Left arm, Patient Position: Sitting) | Pulse 100 | Temp 98.9 F(37.2 C) | Resp 18 | Ht 4' 9.5" (1.461 m) | Wt 115 lb (52.2 kg) | BMI 24.45 kg/m Body mass index is 24.45 kg/m. Physical Exam Constitutional: Appearance: She is well-developed. HENT: Head: Normocephalic and atraumatic. Right Ear: Tympanic membrane and external ear normal. Left Ear: Tympanic membrane and external ear normal. Nose: Congestion and rhinorrhea present. Mouth/Throat: Pharynx: Posterior oropharyngeal erythema present. No oropharyngeal exudate. Eyes: General: Right eye: No discharge. Left eye: No discharge. Conjunctiva/sclera: Conjunctivae normal. Pupils: Pupils are equal, round, and reactive to light. Neck: Musculoskeletal: Normal range of motion and neck supple. No neck rigidity or muscular tenderness. Thyroid: No thyromegaly. Cardiovascular: Rate and Rhythm: Normal rate and regular rhythm. Heart sounds: Normal heart sounds. Pulmonary: Effort: Pulmonary effort is normal. No respiratory distress. Breath sounds: Normal breath sounds. No wheezing, rhonchi or rales. Abdominal: General: Bowel sounds are normal. There is no distension. Palpations: Abdomen is soft. There is no mass. Tenderness: There is no abdominal tenderness. There is no guarding or rebound. Lymphadenopathy: Cervical: No cervical adenopathy. Skin: General: Skin is warm and dry. Findings: No rash. Neurological: Mental Status: She is alert. Coordination: Coordination normal. Comments: Non-verbal, smiling tries to grab nearby people. ASSESSMENT / IMPRESSION: ICD-9-CM ICD-10-CM 1. Acute non-recurrent sinusitis, unspecified location 461.9 J01.90 doxycycline (VIBRAMYCIN) 100 MG Oral Tab 2. Cough 786.2 R05 benzonatate (TESSALON PERLES) 100 MG Oral Cap 3. Autism 299.00 F84.0 4. Intellectual disability 319 F79 5. Cerebral palsy, unspecified type (HCC) 343.9 G80.9 Plan Patient Instructions You present today with upper respiratory infection symptoms. Rest, drink plenty of fluids, and return if worsening over the next week, or not resolved in 2 weeks. I sent in doxy to [facility]. Be sure they deliver it this weekend. Take with food Avoid sun: Causes sunburn You have been prescribed an antibiotic for treatment of your condition. It is important to rememberthat antibiotics treat bacterial infections, not viral infections. In order for them to be effective - you must take ALL of the medication and take it exactly as prescribed. FINISH THE MEDICATION - even if you are feeling better. Antibiotics can cause stomach upset and diarrhea, and increase the risk of C. Difficile Colitis. You can help decrease these symptoms/risks by taking a probiotic while using the medication (Brittany Culturellantoinette for example), or give her yogurt. Take your antibiotic with food unless otherwise recommended by the pharmacist. Author: Rylie Bautista MD 07/13/2019 15:14 documented in this encounter Plan of Treatment Health Maintenance Due Date Last Done Comments DEPRESSION SCREENING 06/10/2020 06/10/2019 DTaP/Tdap/Td Vaccines (2 - Tdap) 05/21/2025 05/21/2015 HEPATITIS A IMMUNIZATION SERIES Aged Out No longer eligible based on patient's age to complete this topic HPV IMMUNIZATION SERIES Aged Out No longer eligible based on patient's age to complete this topic MENINGOCOCCAL VACCINE IMM Aged Out No longer eligible based on patient's age to complete this topic PNEUMOCOCCAL 0-64 YRS Aged Out No longer eligible based on patient's age to complete this topic documented as of this encounter Results Not on filedocumented in this encounter Visit Diagnoses Diagnosis Acute non-recurrent sinusitis, unspecified location Cough Autism Autistic disorder, current or active state Intellectual disability Unspecified intellectual disabilities Cerebral palsy, unspecified type (HCC) documented in this encounter Insurance Payer Benefit Plan / Subscriber ID Effective Dates Phone Address Type Group [employer] ACCESS xxxxxxxxxxxx 2013-Present [facility] CARE PPO MEDICAID [place] xxxxxxxx 2017-Presen Medicaid [place]ICA[place] t Guarantor Name Account Type Relation to Date of Phone Billing Patient Address Dilma Ayala Personal/Family 1980 [address] (Home) [place], [place] [phone] [id number] (Work) documented as of this encounter
--- OUTSIDE RECORDS SUMMARY | 2019-07-28 12:12 | XMS REPORT | Summary of Care ---
:1980 Author Organization [facility] Address [address] [place] [address] Care Team Providers Name Role Phone Roxi Quinonez Primary Care Provider Reason for Visit Reason Comments Physical none prior exam Encounter Details Date Type Department Care Team Description 06/10/2019 Office Visit [facility] Roxi Quinonez MD Routine general medical examination at a health care facility (Primary Dx); Medicine [address] Cerebral palsy, unspecified type (HCC); [address] [address] Autism; [place] [address] Cerumen debris on tympanic membrane of left ear; [phone] Seasonal allergic rhinitis due to other allergic trigger Allergies Active Allergy Reactions Severity Noted Date Comments Amoxicillin 08/28/2007 Augmentin 08/28/2007 Influenza Vaccines Unknown Reaction 05/21/2015 Potassium Other 08/28/2007 documented as of this encounter (statuses as of 06/10/2019) Medications Medication Sig Dispensed Refills Start End [...] MG Oral NEEDED (cough Cap without fever). benzonatate TAKE ONE 30 Cap 0 10/20/19 Active (TESSALON PERLES) CAPSULE BY 17 100 MG Oral Cap MOUTH EVERY 8 HOURS NEEDED FOR COUGH (DO NOT CRUSH OR CHEW) triamcinolone APPLY TO 80 g 0 01/31/20 [...] debris on tympanic membrane of left ear EAR WAX REMOVAL INSTILL 4 15 mL 5 03/05/20 Discontinued DROPS 6.5 % Otic DROPS IN EACH 15 019 (Reorder) Solution EAR 2 TIMES A DAY FOR 7 DAYS THEN IRRIGATE ASNEEDED (BREAK UP EAR WAX) documented as of this encounter (statuses as of 06/10/2019) Active Problems Problem Noted Date Allergic rhinitis 01/01/2016 Overview: Restore zyrtec 01/13 after failed trial to stop medication Seizure disorder 11/29/2011 Overview: 11/29/11 last 2-3 minutes Mental retardation 08/28/2007 Autism 08/28/2007 Cerebral palsy 08/28/2007 documented as of this encounter (statuses as of 06/10/2019) Immunizations Name Administration Dates Next Due TDAP [...] Sign Reading Time Taken Comments Blood Pressure 102/72 06/10/2019 8:29 AM EST Pulse 102 06/10/2019 8:29 AM EST Temperature 36.8 06/10/2019 8:29 AM EST C (98.2 F) Respiratory Rate - - Oxygen Saturation 99% 06/10/2019 8:29 AM EST Inhaled Oxygen Concentration - - Weight 52.2 kg (115 lb) 06/10/2019 8:29 AM EST Height 146.1 cm (4' 9.5") 06/10/2019 8:29 AM EST Body Mass Index 24.45 06/10/2019 8:29 AM EST documented in this encounter Patient Instructions Patient InstructionsRoxi Quinonez MD - 06/10/2019 8:40 AM ESTLeave claritin in place for the winter months - Consider discontinue in the Spring is she is not known to [facility] spring allergies- Keeping active and ideal weight - Reasons for intolerance to flu shot should be investigateed - documented in this encounter Progress Notes Roxi Quinonez MD - 06/10/2019 8:40 AM EST PATIENT: Dilma Ayala DATE: 06/10/2019 Dilma Ayala is a 38-y.o. female accompanied by both parents - presents for annual Review -she has severe autism/ MR 1.last visit was leaning to the left so caretakers questioned hip or other mechanical problem causing this - no finding to explain problem found last visit - parents observe that she still leans but there is not pain or problem associated so they are just observein - 2. Patient does not get senior benefits manager input - She would have to be put under anesthesia for this and it is thought not necessary under those cirucmstances 3. Patient is eating well/ is active with quiet activities - she goes home weekends with her parensts 4. Questions about daily clarinex - Decided that patient gets cold in the winter and may be relatedto allergy so will keep her on in the winter- 5. Vaccinations- Labelled at allergic to flu shot 2014 - not clear from record what the problem is Patient Active Problem List Diagnosis Mental retardation Autism Cerebral palsy (HCC) Seizure disorder (HCC) Allergic rhinitis Exercize some No OGDEN. No cardiopulmonary symptoms as dyspnea, cough. palpitations, or chest pain on exertion. No upper or lower GI complaints as heartburn, abdominal pain, change in bowel habits, black or bloody stools. No urinary tract symptoms or incontinence. No symptoms as nocturia, discharge No bruising/ bleeding. No neurological complaints as dysphagia, imbalance, vertigo, focal weakness. No insomnia.+ Rested after nights sleep. . Does not stop breathing at night. Current Outpatient Medications Medication Sig acetaminophen (TYLENOL) [...] benzonatate (TESSALON PERLES) 100 MG Oral Cap TAKE ONE CAPSULE BY MOUTH EVERY 8 HOURS NEEDED FOR COUGH (DO NOT CRUSH OR CHEW) calcium carbonate-vitamin D (CALTRATE-D) 600-400 MG-UNIT Oral Tab TAKE ONE TABLET BY MOUTH 2 TIMES A DAY (MAY CRUSH IF NEEDED) SUPPLEMENT Fajzzkp-Nzoehvvlrh-Ooxczov (VICKS VAPORUB) 4.7-1.2-2.6 % Apply externally Ointment [...] MOUTH ONCE A DAY ( STOOL SOFTNER) Emollient (CETAPHIL MOISTURIZING) Apply externally Cream APPLY [...] No current facility-administered medications for this visit. Social History Socioeconomic History Marital status: Single Spouse name: Not on file Number of children: Not on file Years of education: Not on file Highest education level: Not on file Occupational History Not on file Social Needs Financial resource strain: Not on file Food insecurity: Worry: Not on file Inability: Not on file Transportation needs: Medical: Not on file Non-medical: Not on file Tobacco Use Smoking status: Never Smoker Smokeless tobacco: Never Used Substance and Sexual Activity Alcohol use: No Alcohol/week: 0.0 standard drinks Drug use: No Sexual activity: Not on file Lifestyle Physical activity: Days per week: Not on file Minutes per session: Not on file Stress: Not on file Relationships Social connections: Talks on phone: Not on file Gets together: Not on file Attends sabianist service: Not on file Active member of club or organization: Not on file Attends meetings of clubs or organizations: Not on file Relationship status: Not on file Intimate partner violence: Fear of current or ex partner: Not on file Emotionally abused: Not on file Physically abused: Not on file Forced sexual activity: Not on file Other Topics Concern Not on file Social History Narrative Not on file No family history on file. OBJECTIVE: Not cooperative to exam BP 102/72 (BP Location: Right arm, Patient Position: Sitting) | Pulse 102 | Temp 98.2 F (36.8 C) (Tympanic) | Ht 4' 9.5" (1.461 m) | Wt 115 lb ( 52.2 kg) | SpO2 99% | BMI 24.45 kg/m Gen well- active Heent: ears left more than right Cerumen - Almost blocked on the left oroph-wnl No supraclavicular, lymphadenopathy Lungs-clear to auscultation at bases CV RRR hr fast - no murmur - Breasts-unable Abd. Nontender to palpation Deferred Ext-no edema; skin- no rashes or suspicious lesions Neuro- Smiles - constant motion - strong - pulls and grasps with great strength - Walks / rock with stability A/P ICD-9-CM ICD-10-CM 1. Routine general medical examination at a [facility] care facility V70.0 Z00.00 CBC WITH DIFFERENTIAL COMPREHENSIVE METABOLIC PANEL THYROID STIMULATING HORMONE LDL, DIRECT 2. Cerebral palsy, unspecified type (HCC) 343.9 G80.9 3. Autism 299.00 F84.0 4. Cerumen debris on tympanic membrane of left ear Address left ear wax at her [place] - 380.4 H61.22 carbamide peroxide (EAR WAX REMOVAL DROPS) 6.5 % Otic Solution 5. Seasonal allergic rhinitis due to other allergic trigger Good control, continue present treatment 477.8 J30.89 Chief Complaint Patient presents with Physical none prior exam Limited exam Patient Instructions Leave claritin in place for the winter months - Consider discontinue in the Spring is she is not known to [facility] spring allergies- Keeping active and ideal weight - Reasons for intolerance to flu shot should be investigateed - Author: Roxi Quinonez MD documented in this encounter Plan of Treatment Name Type Priority Associated Diagnoses Order Schedule CBC WITH DIFFERENTIAL Lab Routine Routine general medical Expected: 2018 examination at [facility] (Approximate[facility] Expires: 12/07/2019 COMPREHENSIVE METABOLIC Lab Routine Routine general medical Expected: 06/10 PANEL examination at [facility] (Approximate[facility] Expires: 12/07/2019 THYROID STIMULATING Lab Routine Routine general medical Expected: 2018 HORMONE examination at [facility] (Approximate[facility] Expires: 12/07/2019 LDL, DIRECT Lab Routine Routine general medical Expected: 06/10/2019 examination at [facility] (Approximate[facility] Expires: 12/07/2019 Health Maintenance Due Date Last Done Comments DEPRESSION SCREENING 06/10/2020 06/10/2019 HPV IMMUNIZATION SERIES Aged Out No longer eligible based on patient's age to complete this topic MENINGOCOCCAL VACCINE IMM Aged Out No longer eligible based on patient's age to complete this topic PNEUMOCOCCAL 0-64 YRS Aged Out No longer eligible based on patient's age to complete this topic documented as of this encounter Results Not on filedocumented in this encounter Visit Diagnoses Diagnosis Routine general medical examination at a health care facility - Primary Cerebral palsy, unspecified type (HCC) Autism Autistic disorder, current or active state Cerumen debris on tympanic membrane of left ear Seasonal allergic rhinitis due to other allergic trigger documented in this encounter Insurance Payer Benefit Plan / Subscriber ID Effective Dates Phone Address Type Group [employer] BCBS [place] ACCESS xxxxxxxxxxxx 2013-Present [facility] CARE PPO [place]ICAID [place] xxxxxxxx 2017-Presen Medicaid [place]ICA[place] t Guarantor Name Account Type Relation to Date of Phone Billing Patient Address Dilma Ayala Personal/Family 1980 [address] (Home) [place], [place] [phone] [id number] (Work) documented as of this encounter
--- NOTE | 2019-07-28 12:36 | ED ---
Complex/Multi-Sys Presentation - HPI Summary HPI Summary: Patient is a 39 y/o F presenting to [facility] accompanied by parents for decreased appetite, decreased fluid intake, generalized weakness and shaking. She is a level 5 caveat secondary to non-verbal status and cerebral palsy, parents provide medical history. The patient had been evaluated at [facility] around week ago for generalized pain believed to be at her abdomen. Bloodwork, CXR, and CT ABD/PEL were done. CT revealed constipation and ovarian cyst. She was referred to GI specialist but has not been evaluated by GI yet as there was no appointment available for this patient until August 06, 2019. Parents present with patient today concerned about decline of the patient. Mother notes that the patient has a large appetite at baseline but has only been eating a bite or two of her meals. Parents had initially believed that the patient's decreased appetite was related to her abdominal pain but state that her lack of appetite has persisted. It is also reported that the patient will gag when attempting to eat foods such as ice cream or yogurt. Patient is capable of drinking fluids, but has been drinking an abnormally minimal amount. Father makes note of increased pallor of skin. Patient has exhibited generalized weakness as well; parents state that the patient is capable of ambulation at baseline but will "buckle" when they try to get her out of the wheelchair. Diffuse, persistent shaking is noted also. Parents are concerned for possible blockage or GI infection. Patient lives in a usp. Home medications and allergies are reviewed. - History Of Current Complaint Chief Complaint: EDNauseaVomitDiarrh Time Seen by Provider: 07/28/19 12:23 Hx Obtained From: Family/Cover Operator Hx From Patient Unobtainable Due To: Other - She is a level 5 caveat secondary to non-verbal status and cerebral palsy Onset/Duration: Lasting Days, Still Present Timing: Constant, Days Associated Signs And Symptoms: Positive: Weakness - generalized, Other - decreased appetite, decreased fluid intake, shaking, pallor of skin - Allergies/Home Medications Allergies/Adverse Reactions: Allergies Allergy/AdvReac Type Severity Reaction Status Date / Time amoxicillin [From Augmentin] Allergy Unknown Verified 07/22/19 18:04 Reaction Details clavulanic acid Allergy Unknown Verified 07/22/19 18:04 [From Augmentin] Reaction Details Influenza Virus Vaccines Allergy Unknown Verified 07/22/19 18:04 Reaction Details potassium Allergy Unknown Verified 07/22/19 18:04 Reaction Details PMH/Surg Hx/FS Hx/Imm Hx Respiratory History: Reports: Hx Asthma Neurological History: Reports: Hx Seizures, Other Neuro Impairments/Disorders - CEREBRAL PALSY Psychiatric History: Reports: Hx Autism Infectious Disease History: No Infectious Disease History: Denies: Hx Clostridium Difficile, Hx Hepatitis, Hx Human Immunodeficiency Virus (HIV), Hx Shingles, Hx Tuberculosis, Traveled Outside the [place] in Last 30 Days - Family History Known Family History: Positive: Renal Disease - kidney stones - Social History Alcohol Use: None Hx Substance Use: No Substance Use Type: Reports: None Hx Tobacco Use: No Smoking Status (MU): Never Smoked Tobacco Review of Systems - ROS Summary Review of Systems Summary: She is a level 5 caveat secondary to non-verbal status and cerebral palsy Constitutional: Other - positive - generalized weakness, shaking Gastrointestinal: Other - positive - decreased PO intake Skin: Other - positive - increased pallor of skin All Other Systems Reviewed And Are Negative: No - Comments Additional Review of Systems Comments: She is a level 5 caveat secondary to non-verbal status and cerebral palsy Physical Exam - Summary Physical Exam Summary: Appearance: The patient is well-nourished in no acute distress and in no acute pain. Skin: The skin is warm and dry, and skin color reflects adequate perfusion. HEENT: The head is normocephalic and atraumatic. The pupils are equal and reactive. The conjunctivae are clear and without drainage. Nares are patent and without drainage. Mouth reveals moist mucous membranes, and the throat is without erythema and exudate. The external ears are intact. The ear canals are patent and without drainage. The tympanic membranes are intact. Neck: The neck is supple with full range of motion and non-tender. There are no carotid bruits. There is no neck vein distension. Respiratory: Chest is non-tender. Lungs are clear to auscultation and breath sounds are symmetrical and equal. Cardiovascular: Heart is regular rate and rhythm. There is no murmur or rub auscultated. There is no peripheral edema and pulses are symmetrical and equal. Abdomen: The abdomen is soft and non-tender. There are normal bowel sounds heard in all four quadrants and there is no organomegaly palpated. Musculoskeletal: There is no back tenderness noted. Extremities are non-tender with full range of motion. There is good capillary refill. There is no peripheral edema or calf tenderness elicited. Neurological: Level 5 caveat secondary to non-verbal status. The patient has symmetrical motor strength in all four extremities. Cranial nerves are grossly intact. Deep tendon reflexes are symmetrical and equal in all four extremities. Psychiatric: Level 5 caveat secondary to non-verbal status. Triage Information Reviewed: Yes Vital Signs On Initial Exam: Initial Vitals Temp Pulse Resp BP Pulse Ox 98.1 F 93 18 125/92 97 07/28/19 12:05 07/28/19 12:05 07/28/19 12:05 07/28/19 12:05 07/28/19 12:05 Vital Signs Reviewed: Yes Completion Of Physical Exam Limited Due To: Level 5 Procedures - Sedation Patient Received Moderate/Deep Sedation with Procedure: No Diagnostics - Vital Signs Vital Signs Temp Pulse Resp BP Pulse Ox 07/28/19 12:05 98.1 F 93 18 125/92 97 - Laboratory Result Diagrams: 07/28/19 15:04 07/28/19 15:04 Lab Statement: Any lab studies that have been ordered have been reviewed, and results considered in the medical decision making process. - Radiology x-ray abdomen Radiology Interpretation Completed By: Radiologist Summary of Radiographic Findings: IMPRESSION: Normal KUB. This report was reviewed by the ED physician. Re-Evaluation - Re-Evaluation First Eval Re-Evaluation Time: 21:00 Comment: Patient has been receiving fluids. Complex Multi-Symp Course/Dx Course Of Treatment: Much like her last visit we had to give on to some chemical sedation in order to obtain an IV, labs and administer some IV fluids. Her labs are unremarkable. I suspect she is quite dehydrated and we were only able to get a 24-gauge in. We are hydrating her slowly and when she awakens she will be reevaluated. If she is improved and the parents are comfortable, she will be discharged and Dr. Rosie Schaefer has agreed to have her followed up this week. If she is not improved at all she will need to be admitted and have a GI consult tomorrow. - Diagnoses Provider Diagnoses: Dehydration - Physician Notifications Discussed Care Of Patient With: Elyssa Thompson Time Discussed With Above Provider: 21:09 Instructed by Provider To: Other - Patient's case was discussed with Dr. Griffin Mckeon. She states that if the patient's condition is improved after fluids, she can be discharged to home and will have a more immediate appointment with GI. If the patient is not improved, patient to be admitted to the hospitalist and will have GI scope done in the morning. Discharge ED - Sign-Out/Discharge Documenting (check all that apply): Sign-Out Patient Signing out patient TO: Isacc Polo - Discharge Plan Condition: Stable Disposition: ADMITTED TO [facility] - Billing Disposition and Condition Condition: STABLE Disposition: Admitted to [facility] - Attestation Statements Document Initiated by Ratna: Yes Documenting Scribe: MARKUS NAVARRETE Provider For Whom Ratna is Documenting (Include Credential): ISACC GRAJEDA MD Scribe Attestation: IMARKUS, scribed for ISACC GRAJEDA MD on 07/29/19 at 1409. Scribe Documentation Reviewed: Yes Provider Attestation: The documentation as recorded by the MARKUS alva accurately reflects the service I personally performed and the decisions made by me, ISACC GRAJEDA MD Status of Scribe Document: Viewed
[2019-07-28] MEDS ORDERED: Haloperidol INJ IV/IM* 5 MG/ML AMP IM ONE (12:43)
[2019-07-28] MEDS ORDERED: LORazepam INJ* 2 MG/ML 1 ML VIAL IM ONE (12:43)
[2019-07-28] MEDS ORDERED: diPHENhydraMINE IV* 50 MG/ML 1 ml VIAL (BENADRYL) IM ONE (12:43)
[2019-07-28] MEDS ORDERED: Lorazepam PYXIS KEY ONE (13:00)
[2019-07-28 15:27] LABS: ALT 35 U/L (7-52); Albumin 4.5 g/dL (3.2-5.2); Albumin/Globulin Ratio 1.4 (1-3); Alkaline Phosphatase 91 U/L (34-104); BUN/Creatinine Ratio 26.2 (8-20); Blood Urea Nitrogen 17 mg/dL (6-24); C Reactive Protein 2.83 mg/L (<8.01); CO2 Carbon Dioxide 21 mmol/L (22-32); Calcium 9.2 mg/dL (8.6-10.3); Chloride 106 mmol/L (101-111); EGFR African American 124.1 (>60); EGFR Non-African American 102.6 (>60); Globulin 3.2 g/dL (2-4); Glucose 89 mg/dL (70-100); Sodium 136 mmol/L (135-145); Total Protein 7.7 g/dL (6.4-8.9)
[2019-07-28] MEDS: NS 0.9% 1000 ML** 2,000 ML IV ONE ×2 (15:30→18:57)
[2019-07-28 15:34] LABS: HCG Pregnancy 1.19 mIU/mL
[2019-07-28 15:35] LABS: ABS Eosinophils 0.1 10^3/ul (0-0.6); ABS Lymphocytes 1.6 10^3/ul (1.0-4.8); ABS Monocytes 0.5 10^3/ul (0-0.8); ABS Neutrophils 4.7 10^3/ul (1.5-7.7); Eosinophil % 2.1 %; Hematocrit 36 % (35-47); Lymphocyte % 22.7 %; Mean Corpuscular HGB Conc 33 g/dL (31-36); Mean Corpuscular Hemoglobin 31 pg (27-31); Mean Corpuscular Volume 93 fL (80-97); Mean Platelet Volume 10.2 fL (7.4-10.4); Platelet Count 182 10^3/uL (150-450); Red Blood Count 3.84 10^6 /uL (3.70-4.87); Red Cell Distribution Width 13 % (10-15)
[2019-07-28 16:29] LABS: Anion Gap 9 mmol/L (2-11)
--- NOTE | 2019-07-28 23:00 | ED ---
Progress - Progress Note Progress Note: The patient is a sign-out from Dr. Christiano Baca MD, to Dr. Christiano Polo MD , at change of shift at 2200 on 07/28/2019, pending re-eval for improvement and disposition. If patient's condition is improved after fluids, she can be discharged to home and will have a more immediate appointment with GI, but if not improved patient, is to be admitted to the hospitalist and will have GI scope done in the morning. Patient still sleeping at 0200; has not wet briefs despite 2L fluids, per nurse. Re-Evaluation - Re-Evaluation First Eval Re-Evaluation Time: 02:00 Change: Unchanged Comment: Patient still asleep with dry briefs following 2L fluids Course/Dx - Course Course Of Treatment: The patient is a sign-out from Dr. Christiano Baca MD, to Dr. Christiano Polo MD, at change of shift at 2200 on 07/28/2019, pending re- eval for improvement and disposition. If patient's condition is improved after fluids, she can be discharged to home and will have a more immediate appointment with GI, but if not improved patient, is to be admitted to the hospitalist and will have GI scope done in the morning. Patient has not had any wet briefs following 2L fluids. Dr. Terrazas from the hospitalist services accepts the patient for admission. - Diagnoses Provider Diagnoses: Dehydration - Provider Notifications Discussed Care Of Patient With: Macho Terrazas - hospitalist Time Discussed With Above Provider: 05:00 Instructed by Provider To: Other - I discussed the patient's case with Dr. Terrazas , who accepts the patient for admission. Discharge ED - Sign-Out/Discharge Documenting (check all that apply): Patient Departure - Patient accepted for admission by Dr. Terrazas., Receiving Sign-Out Receiving patient FROM: Christiano Baca - Patient is a sign-out from Dr. Christiano Baca MD, at 2200 on 07/28/2019, pending re-eval for improvement and disposition. - Discharge Plan Condition: Stable Disposition: ADMITTED TO [facility] Referrals: Roxi Quinonez MD [Primary Care Provider] - - Billing Disposition and Condition Condition: STABLE Disposition: Admitted to [facility] - Attestation Statements Document Initiated by Scribe: Yes Documenting Scribe: Gillian Mata Provider For Whom Scribe is Documenting (Include Credential): Dr. Christiano Polo MD Scribe Attestation: I, Gillian Mata, scribed for Dr. Christiano Polo MD on 07/29/19 at 0614. Scribe Documentation Reviewed: Yes Provider Attestation: The documentation as recorded by the meghanibe, Gillian Mata accurately reflects the service I personally performed and the decisions made by me, Dr. Christiano Polo MD Status of Scribe Document: Viewed Procedures - Sedation Patient Received Moderate/Deep Sedation with Procedure: No
[2019-07-29] MEDS ORDERED: NS 0.9% 1000 ML** 1,000 ML IV ONE (05:45)
--- NOTE | 2019-07-29 10:16 | HP ---
CC: Dr. Roxi Quinonez* ADMISSION HISTORY AND PHYSICAL: DATE OF ADMISSION: 07/29/19. PRIMARY CARE PHYSICIAN: Dr. Roxi Quinonez. CHIEF COMPLAINT: Decreased p.o. intake. HISTORY OF PRESENT ILLNESS: This is a 39-year-old female with past medical history of cerebral palsy, autism, chronic constipation, plica syndrome, seizure with last episode being in 2008, here due to decreased p.o. intake. The patient lives at a nursing home facility and for the last 2 weeks, she has had decreased p.o. intake. Parents who were present at bedside are primary historians as the patient herself is nonverbal at baseline. According to the parents, the patient really does enjoy eating a lot, but for the last 2 weeks, has not taken anything orally, has been having unsteady with her gait at baseline. She is able to ambulate without any assistive device, but recently has gotten more unsteady, gagging a lot but not vomiting. No fever but was shaking quite a bit. Last bowel movement was 3 days ago. She was also having some pain in her abdomen at the left side. This was especially worse 2 weeks ago when she was brought to the emergency room. They performed a CAT scan at that point, which showed that she had a left possibly hemorrhagic ovarian corpus luteum cyst and moderate fecal load throughout the colon. Family did not see any other symptoms of shortness of breath or chest pain, but the patient is nonverbal, so it was difficult to discern any symptoms. The patient has severe anxiety to other people's touch, and the ER staff was having a difficult time getting her to have an IV or get any tested, so she received Benadryl, Haldol, and Ativan. The combination caused her to be much more drowsy and sedated. PAST MEDICAL HISTORY: As mentioned in HPI, cerebral palsy, autism, constipation , plica, seizure with last episode in 2008. PAST SURGICAL HISTORY: She has had tubes in her ears, wisdom tooth removal and another additional tooth removal. HOME MEDICATIONS: The patient is on mostly [id number] p.r.n. medications including; 1. Robitussin. 2. Glycerin topical. 3. Glycerin suppository. 4. Vicks VapoRub ointment. 5. Cetaphil topical. 6. Clobetasol topical. 7. Debrox Otic. 8. Diphenhydramine p.o. 9. Pseudoephedrine orally. 10. Petrolatum white topical. 11. Naproxen oral. 12. Loperamide p.r.n. 13. Tessalon Perles p.r.n. 14. Bacitracin p.r.n. 15. Maalox p.r.n. 16. Tylenol p.r.n. 17. Triazolam p.r.n. 18. Kenalog p.r.n. 19. MiraLax oral daily. 20. Multivitamin oral daily. 21. Loratadine oral daily. 22. Sodium docusate oral daily. 23. Calcium with vitamin D oral daily. ALLERGIES: The patient is allergic to AMOXICILLIN, CLAVULANATE, INFLUENZA VIRUSES, and POTASSIUM SUPPLEMENTATION. FAMILY HISTORY: Father is alive at bedside at 63, has acid reflux and some cholesterol and high blood pressure. Mother is alive, 60 years old, has acid reflux but does not need any medications. SOCIAL HISTORY: The patient is not a smoker, alcoholic, or drug user, resides at a nursing home. Her parents are her healthcare proxies. REVIEW OF SYSTEMS: Unable to obtain due to the patient's mental status. PHYSICAL EXAMINATION GENERAL: The patient is arousable, but nonverbal at baseline. VITAL SIGNS: Temperature 98.1, BP was noted to be 125/75, heart rate 86, respiratory rate 16, saturating 99% on room air. HEAD AND NECK: Bilateral pupils were reactive. I could not do any oral examination as the patient would refuse to open her mouth. The lips themselves appear to be very dry. Neck: Supple. No jugular venous distention. LUNGS: Clear to auscultation bilaterally. No wheezing, rhonchi, or rales. HEART: S1, S2. Regular rate and rhythm. ABDOMEN: Soft, nontender, nondistended. There was no obvious tenderness, but the patient was pushing my hands away, which according to the mom is likely because she does not want to be touched rather than any obvious tenderness. EXTREMITIES: No cyanosis, clubbing, or edema. DIAGNOSTIC STUDIES/LAB DATA: CBC was unremarkable. Comprehensive metabolic panel was unremarkable except for minimally decreased bicarb at 21. There was no potassium documented. Lactic acid normal. LFTs normal. Abdominal x-ray was otherwise normal. IMPRESSION: This is a 39-year-old female with decreased oral intake for unclear etiology. ASSESSMENT AND PLAN: 1. Decreased p.o. intake for unclear etiology. We will consult GI. ER already spoke with Dr. Thompson, who stated that she will reevaluate the patient if she gets admitted in the morning and consider esophagogastroduodenoscopy. We will keep the patient n.p.o. for possible esophagogastroduodenoscopy. The patient may also need PEG tube placement if she is adamant on not taking anything oral but this could be discussed at a later date. 2. Cerebral palsy and autism. The patient does not like to be touched. We will try to be gentle, although she may require another dose of Ativan and Benadryl to calm her down if she gets severely agitated, but the dose should be reduced as the patient was altered and confused for many hours in the ER from the previous dose of this combination medication. 3. Chronic constipation. We will leave it up to GI regarding management. 4. History of seizure disorder. Currently not on any medication and has not had any seizures for many years. 5. DVT prophylaxis with sequential compression device. [id number]/CPS #: [id number] [facility]
--- NOTE | 2019-07-29 14:58 | PN ---
Subjective Date of Service: 07/29/19 Interval History: Patient spent the majority of the time asleep while I spoke to her parents. Would start awake with loud noises but quickly go back to sleep. Her parents stated that before she came to the emergency room, she was developing difficulty with walking and for several months had appeared to be leaning more to her left. They also pointed out that her tongue was coated in white, new as of this week. Patient had not been allowing for oral care, had not been eating much at all in the past week whereas she normal had a very good appetite. Attempted to assess her tongue, would not open her mouth wide, but of the area that was scraped with a tongue depressor, it did not come off. Family History: Unchanged from Admission Social History: Unchanged from Admission Past Medical History: Unchanged from Admission Objective Active Medications: Fluconazole (Diflucan 100 Mg Tab*) 100 mg PO DAILY [facility] Stop: 08/04/19 08:59 Sodium Chloride (Ns 0.9% 1000 Ml) 1,000 mls @ 125 mls/hr IV PER RATE [facility] Vital Signs - 8 hr 07/29/19 07/29/19 07/29/19 07:00 07:30 08:00 Temperature Pulse Rate 77 78 71 Respiratory Rate Blood Pressure 115/74 118/65 (mmHg) O2 Sat by Pulse 98 98 98 Oximetry 07/29/19 07/29/19 07/29/19 08:30 08:45 09:18 Temperature 97.9 F 98.7 F Pulse Rate 81 72 81 Respiratory 22 16 Rate Blood Pressure 121/73 130/56 121/73 (mmHg) O2 Sat by Pulse 98 94 98 Oximetry 07/29/19 10:46 Temperature Pulse Rate 73 Respiratory 16 Rate Blood Pressure 119/66 (mmHg) O2 Sat by Pulse 100 Oximetry Oxygen Devices in Use Now: None Appearance: This is a well developed young woman who appears pale, drowsy, though will awaken briefly to verbal stimuli. Eyes: No Scleral Icterus, PERRLA Ears/Nose/Mouth/Throat: NL Teeth, Lips, Gums, Clear Oropharnyx, Mucous Membranes Moist, - - Tongue coated in white. Neck: NL Appearance and Movements; NL JVP, Trachea Midline Respiratory: Symmetrical Chest Expansion and Respiratory Effort, Clear to Auscultation, - - Diminished throughout bilaterally. Cardiovascular: NL Sounds; No Murmurs; No JVD, RRR, No Edema Abdominal: NL Sounds; No Tenderness; No Distention Lymphatic: No Cervical Adenopathy Extremities: No Edema Skin: No Rash or Ulcers, No Nodules or Sclerosis Neurological: Alert and Oriented x 3 Lines/Tubes/Other Access: Clean, Dry and Intact Peripheral IV Result Diagrams: 07/28/19 15:04 07/28/19 15:04 Assess/Plan/Problems-Billing Assessment: This is a 39 year old female with a PMH of cerebral palsy, non-verbal, and autism who was admitted on 07/29/19 for decreased oral intake and weakness. - Patient Problems (1) Decreased oral intake Current Visit: Yes Status: Acute Code(s): R63.8 - OTHER SYMPTOMS AND SIGNS CONCERNING FOOD AND FLUID INTAKE SNOMED Code(s): 754503007 (2) Weakness Current Visit: Yes Status: Acute Code(s): R53.1 - WEAKNESS SNOMED Code(s) : 75424442 (3) Seizures Current Visit: Yes Status: Acute Code(s): R56.9 - UNSPECIFIED CONVULSIONS SNOMED Code(s): 76172243 (4) DVT prophylaxis Current Visit: Yes Status: Acute Code(s): Z29.9 - ENCOUNTER FOR PROPHYLACTIC MEASURES, UNSPECIFIED SNOMED Code(s): 561343918 (5) Full code status Current Visit: Yes Status: Acute Code(s): Z78.9 - OTHER SPECIFIED HEALTH STATUS SNOMED Code(s): 190405839
[2019-07-29 18:07] LABS: Urine Appearance Clear; Urine Bilirubin Negative (Negative); Urine Blood 3+ (Negative); Urine Color Yellow; Urine Glucose Negative (Negative); Urine Ketones 2+ (Negative); Urine Nitrite Positive (Negative); Urine Protein Negative (Negative); Urine Urobilinogen Negative (Negative)
[2019-07-29 18:10] LABS: Urine Bacteria 1+ (Absent); Urine Red Blood Cell Trace(0-2/hpf) (Absent); Urine Squamous Epithelial Cell Present (Absent); Urine White Blood Cell 1+(6-10/hpf) (Absent)
[2019-07-29] MEDS ORDERED: Lidocaine 2% VISCOUS* 15 ML UDC PO PRN (18:27)
[2019-07-29] MEDS: NS 0.9% 1000 ML** 1,000 ML IV SCH (21:24)
[2019-07-29] MEDS ORDERED: Ibuprofen TAB* 400 MG PO PRN (21:26)
[2019-07-29] MEDS: Clotrimazole TROCHE* 10 MG TROCHE PO SCH (21:31)
[2019-07-30] MEDS: NS 0.9% 1000 ML** 1,000 ML IV SCH (05:57)
[2019-07-30] MEDS: Clotrimazole TROCHE* 10 MG TROCHE PO SCH ×2 (06:41→09:59)
[2019-07-30 06:47] LABS: ABS Eosinophils 0.3 10^3/ul (0-0.6); ABS Lymphocytes 1.5 10^3/ul (1.0-4.8); ABS Monocytes 0.3 10^3/ul (0-0.8); ABS Neutrophils 3.3 10^3/ul (1.5-7.7); Eosinophil % 5.2 %; Hematocrit 32 % (35-47); Hemoglobin 10.2 g/dL (12.0-16.0); Lymphocyte % 27.8 %; Mean Corpuscular HGB Conc 32 g/dL (31-36); Mean Corpuscular Hemoglobin 31 pg (27-31); Mean Corpuscular Volume 96 fL (80-97); Mean Platelet Volume 9.5 fL (7.4-10.4); Nucleated Red Blood Cells % 0.2; Platelet Count 130 10^3/uL (150-450); Red Blood Count 3.29 10^6 /uL (3.70-4.87); Red Cell Distribution Width 13 % (10-15); White Blood Count 5.4 10^3/uL (3.5-10.8)
[2019-07-30] MEDS ORDERED: NS 0.9% 1000 ML** 1,000 ML IV SCH (06:51)
[2019-07-30 06:59] LABS: Calcium 7.9 mg/dL (8.6-10.3); Potassium 3.7 mmol/L (3.5-5.0)
[2019-07-30 07:04] LABS: BUN/Creatinine Ratio 14.9 (8-20); EGFR African American 180.4 (>60); EGFR Non-African American 149.1 (>60)
[2019-07-30] MEDS ORDERED: Fluconazole 100 MG TAB* TAB PO SCH (09:00)
[2019-07-30] MEDS ORDERED: Nystatin SUSPENSION* 100000 UNITS/ML 5 ML UDC PO SCH (13:00)
[2019-07-30 14:49] VITALS: BP 134/76
--- NOTE | 2019-07-31 05:58 | DS ---
CC: Dr. Quinonez. * DISCHARGE SUMMARY: DATE OF ADMISSION: 07/29/19 DATE OF DISCHARGE: 07/30/19 PROVIDER: Yelena Dailey NP ATTENDING PHYSICIAN: Dr. Juarez.* (DICTATED BY Yelena Dailey NP) PRIMARY CARE PHYSICIAN: Dr. Quinonez. PRIMARY DIAGNOSES: 1. Oropharyngeal candidiasis. 2. Urinary tract infection positive for Escherichia coli. SECONDARY DIAGNOSES: 1. Cerebral palsy and autism. 2. Chronic constipation. 3. Seizure disorder. PROCEDURES: None. DIAGNOSTIC STUDIES/LAB DATA: Abdomen/KUB showed normal KUB, no acute findings. Brain CT showed severely motion degraded exam with no obvious acute intracranial abnormalities. Pertinent lab studies RBC 3.92, hemoglobin 10.2, hematocrit 32, platelet count 130, chloride 112, carbon dioxide 16, creatinine 0.47, calcium 7.9. Urine showed 2+ ketones, 3+ blood, 1+ leukocyte esterase, 1+ wbc's, 1+ bacteria. HISTORY OF PRESENT ILLNESS/HOSPITAL COURSE: This is a 39-year-old female with past medical history significant for autism, cerebral palsy, who presented to the emergency room on 07/29/19 for a 2-week history of decreased oral intake, shakiness, gagging, and unsteady gait. At baseline, she is nonverbal, and is a patient of [facility], with a very involved family. Of note, around she was having sinus issues and had been prescribed a course of doxycycline, which she completed. She was seen in the emergency room on 07/23/19 for abdominal pain. Imaging revealed that she had a possible hemorrhagic left ovarian corpus luteum cyst and moderate fecal load throughout her colon. In the emergency room IV fluids were initiated, labs were drawn, abdominal x-rays were taken. Initially there was the idea that GI was going to be consulted for an EGD, however, after speaking with the patient's family the next day, it reveals that her mouth was coated with thrush, which was initially missed upon examination and it was felt that her lack of appetite, eating, and gagging are secondary to oral pain, secondary to oropharyngeal candidiasis. The patient's family wished to minimize her sedation as she is highly sensitive to sedative, had spent the majority of yesterday sleeping due to the mixture of Haldol and Ativan she had received to undergo her abdominal x-ray and felt that if we treated her oral candidiasis perhaps an EGD was not necessary. At this time, the patient did not show any signs of malnutrition as she has not had any significant weight loss and protein was within normal limits and had no evidence of any edema or muscle mass wasting. She was started on nystatin swish and swallow, which she was able to tolerate and swallow. Today, she is tolerating her meals and her food much better, her appetite is significantly improved as compared to what it was past week and she was acting more herself according to her parents. The decision was to discharge her back into a more familiar environment today as she no longer required IV fluids and was tolerating p.o. and her gait seemed to be improving though her urine happened to result after she was discharged which showed E. coli in the urine. We will call in a script for Bactrim and notify [facility]. REVIEW OF SYSTEMS: Unable to perform review of systems as the patient is nonverbal. PHYSICAL EXAM: Vital Signs: 97.9, 82 pulse, 19 respirations, 108/52 blood pressure. General: This is a well-developed young woman seen ambulating around room, no acute distress. HEENT: Conjunctivae pink and moist. PERRLA, EOMs intact. Oropharynx clear. Mucous membranes coated in thick white growth. Neck is supple. Cardiac: S1, S2 present, heart rate regular, no murmurs, gallops or rubs appreciated. Respiratory: Lung sounds clear throughout bilaterally on room air. No accessory muscle use noted. Abdomen: Soft, nontender, nondistended with positive bowel sounds x4. Musculoskeletal: No clubbing or cyanosis of the digits, can move all extremities. Neurologic: Sensation intact to light touch, no focal deficits appreciated. Skin is intact with no rashes or lesions noted. Psych: Unable to assess orientation as the patient is nonverbal although she is responding to her name and her surroundings. DISCHARGE PLAN: DIET: Is her regular diet as tolerated. ACTIVITIES: To be ambulate with assistance. RETURN PRECAUTIONS: The patient is to return to the emergency room should she develop a fever of 101 degrees or higher or if she continues to have severely decreased oral intake or for new onset nausea vomiting. Plan for each condition: 1. For the oropharyngeal candidiasis, she is to take nystatin swish and swallow 500,000 units p.o. 4 times a day for a total of 14 days, may use viscous lidocaine as needed for pain with swallowing and recommend that she take lactobacillus for the next 2 weeks to help reestablish normal karie. 2. Urine culture resulted after discharge. We will notify [facility] about scripts sent for Bactrim x3 days. 3. Cerebral palsy and autism, to continue supportive care. MEDICATIONS UPON DISCHARGE: 1. Glycerin adult suppository 1 suppository q. day p.r.n. 2. Vicks VapoRub 50 g TP b.i.d. p.r.n. 3. Cetaphil 226 g TP b.i.d. 4. Clobetasol 0.05% 1 application topically b.i.d. 5. Debrox 4 drops as needed b.i.d. 6. Diphenhydramine 25 mg p.o. q.p.m. 7. Naproxen sodium 550 mg p.o. b.i.d. p.r.n. 8. Loperamide 2 mg p.o. 4 times a day p.r.n. 9. Benzonatate 100 mg p.o. q.8 hours p.r.n. 10. Maalox 30 mL p.o. q.4 hours p.r.n. 11. Acetaminophen 650 mg p.o. q.4 hours p.r.n. 12. Triazolam 0.25 g p.o. once p.r.n. 13. Triamcinolone 0.1% cream 1 topically b.i.d. 14. Polyethylene glycol 17 g p.o. daily. 15. Multivitamin with minerals 1 cap p.o. daily. 16. Loratadine 10 mg p.o. daily. 17. Docusate 100 mg p.o. daily. 18. Calcium carbonate-vitamin D 1 tab p.o. b.i.d. 19. Bactrim DS 600/160 1 tab p.o. b.i.d. x3 days. 20. Nystatin swish and swallow 500,000 units p.o. 4 times a day x14 days. 21. Viscous lidocaine 2% 15 mL orally q.6 hours p.r.n. 22. Lactobacillus acidophilus 1 tab p.o. daily. 23. Ibuprofen 400 mg p.o. q.6 hours p.r.n. CONDITION UPON DISCHARGE: Stable. DISPOSITION: [facility]. TIME SPENT ON PATIENT: About 60 minutes, about half of that time spent face-to - face. Yelena aDiley, [employer] [id number]/CPS #: [id number] [facility]
[2019-07-31] MEDS ORDERED: Lactobacillus Acidophilus* 1 TAB PO SCH (09:00)
== END 2019-07-30 15:50 | disposition home or self-care (01) | DRG 724 ==
LOC: ED 12:04 → MED 07-29 06:51
PROVIDERS: ADMIT Internal Medicine; ATTEND Internal Medicine
DX: B37.89 Other sites of candidiasis (principal); N39.0 Urinary tract infection, site not specified; F84.0 Autistic disorder; B96.20 Unspecified Escherichia coli [E. coli] as the cause of diseases classified elsewhere; G80.9 Cerebral palsy, unspecified; K59.09 Other constipation; G40.909 Epilepsy, unspecified, not intractable, without status epilepticus; M67.50 Plica syndrome, unspecified knee; Z79.899 Other long term (current) drug therapy; Z79.1 Long term (current) use of non-steroidal anti-inflammatories (NSAID); Z88.1 Allergy status to other antibiotic agents; Z88.7 Allergy status to serum and vaccine; Z88.8 Allergy status to other drugs, medicaments and biological substances; Z83.42 Family history of familial hypercholesterolemia; Z82.49 Family history of ischemic heart disease and other diseases of the circulatory system
CPT/HCPCS: 36415; 70450; 74018; 80048; 80053; 81003; 81015; 83605; 83690; 84702; 85025; 86140; 87077; 87086; 87186; 87641; 96372; 99284; A9270-GY; J1200; J1630; J2060